=== PATIENT | male | born 1940 | race Caucasian/White ===

== ENCOUNTER → 2021-03-09 09:13 | Outpatient (BNVA) | payer MEDICARE, SELFPAY | PROVIDERS: PCP Internal Medicine; Visit Provider Nurse Practitioner Family | DX: M47.816 Spondylosis without myelopathy or radiculopathy, lumbar region (principal); M79.18 Myalgia, other site; M51.26 Other intervertebral disc displacement, lumbar region | CPT/HCPCS: 99202 ==

== ENCOUNTER 2021-06-15 13:00 | Outpatient (RCR) | payer MEDICARE, SELFPAY ==
--- NOTE | 2021-04-08 15:32 | MHC.PT.EP ---
[facility] [place] Office [place] Office [place] Office [address] Mian Ortiz [address] [phone] F: [phone] F: [phone] F: [phone] F: [phone] Physical Therapy Plan of Care Date of Evaluation: Date of Surgery: NA Diagnosis: SPONDYLOSIS WITHOUT MYELOPATHY OR RADICULOPATHY Assessment: Pt IS 81 YO M REFERRED TO PT WITH LUMBAR SPONDYLOSIS. Pt REPORTS CHRONIC BACK PAIN (WITH PT AND CHIRO IN PAST WITH RELIEF) WITH ACUTE FLARE UP WHICH STARTED OVER THE SUMMER WHILE BUILDING A RETAINING WALL. 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 PRESENTS WITH INCREASED ABDOMINAL GIRTH (REPORTS HERNIA) WITH POOR CORE STRENGTH DECREASED BODY MECH AWARENESS AND DECREASED TRUNK/LE FLEXIBILITY. SHOULD BENEFIT FROM PT TO ADDRESS THESE ISSUES Frequency and Duration: The patient will be seen 2X/WK X 6 WKS Short Term Goals: 1. INCREASED AWARENESS BACK CARE AND SIT POSTURE 2. Pt TO PERF 2-3 TASKS WITH PROPER BODY MECH (USING LEGS VS FLEXING AT WAIST) Shelter Goals: 1. DECREASED BACK PAIN AT LEAST 50% WITH ADLS 2. I HEP WITH DC EX PLAN Treatment Plan: Modalities to reduce pain, spasms and effusion. Manual therapy to restore motion and function. Therapeutic exercise to improve strength and flexibility. Neuromuscular re-education for posture and balance. Therapeutic activities to return to functional activities of daily living. Electronically signed by: RYAN KAUR PT Please sign and return to therapist. Thank you for your referral.
--- NOTE | 2021-08-17 13:21 | MHC.PT.DC ---
[facility] [place] Office [place] Office [place] Office [address] Mian Ortiz [address] [phone] F: [phone] F: [phone] F: [phone] F: [phone] Physical Therapy Discharge Report Diagnosis: SPONDYLOSIS WITHOUT MYELOPATHY OR RADICULOPATHY Date of Surgery: NA Date of Evaluation: 04/08/21 Date of Discharge: 08/17/21 Treatments to Date: 12 Cancellations to Date: No Shows to Date: Discharge Status: Improved Function Independent with HEP Patient Elected to Stop Discharge Summary: Pt LAST SEEN ON 06/15/21 BY SAL ROSEN DPT, PT. PER ASSESSMENT THAT DAY Progressing well, anticipating transition to I HEP in 1-2 visits. Addressed pt questions in regard to specific gym equipment and circuit training advised recommendation to avoid forceful trunk flexion/ext and overhead circuits. Given new HEP sheets today -reviewed HEP to date Pt introduced LBTR with physioball in hooklying today; pt expressing goal of obtaining LBTR with use of ball for home. Progress CKC, core strengthening, ?Pball if pt purchases for home use. Pt THEN CANCELLED LAST 3 SCHEDULED VISITS. Electronically signed by: RYAN KAUR PT Please sign and return to therapist. Thank you for your referral.
== END 2021-08-17 13:22 | disposition home or self-care (01) ==
LOC: HO.PTWFD 13:00
PROVIDERS: Visit Provider Nurse Practitioner Family
DX: M47.816 Spondylosis without myelopathy or radiculopathy, lumbar region (principal); M51.26 Other intervertebral disc displacement, lumbar region; M79.18 Myalgia, other site
CPT/HCPCS: 97110; 97140; 97150; 97161; 97530; 97535

== ENCOUNTER → 2021-08-10 13:03 | Outpatient (BNVA) | payer MEDICARE, SELFPAY | PROVIDERS: PCP Internal Medicine; Visit Provider Nurse Practitioner Family | DX: M51.26 Other intervertebral disc displacement, lumbar region (principal); M47.816 Spondylosis without myelopathy or radiculopathy, lumbar region; M54.89 Other dorsalgia; G89.29 Other chronic pain; M79.645 Pain in left finger(s) | CPT/HCPCS: 99212 ==

== ENCOUNTER 2021-08-17 08:06 | Outpatient (REF) | payer MEDICARE, SELFPAY ==
--- NOTE | ~2021-08-17 | MR_ITS ---
EXAMINATION: MR LUMBAR SPINE WITHOUT CONTRAST CLINICAL INFORMATION: Other intervertebral disc displacement, lumbar region. Pain. COMPARISON: None TECHNIQUE: MRI of the lumbar spine was obtained using routine sequences without contrast. FINDINGS: There is transitional lumbosacral anatomy. For the purposes of this examination the L5-S1 disc is seen on series 6 image 21/30. A formed disc is seen at the S1-S2 level which is seen on series 6 image 27/30. The lumbar vertebral bodies maintain normal heights. There is mild retrolisthesis of L5 on S1. There is an inferior endplate Schmorl's node at L3 with mild associated marrow edema. The extraspinal soft tissues appear normal. SPINAL LEVELS: L1-L2: No posterior disc abnormality. No spinal canal or neural foraminal stenosis. L2-L3: Minimal disc bulging. No spinal canal or neural foraminal stenosis. L3-L4: Disc bulging with mild facet arthropathy. Mild left more than right neural foraminal stenosis. No spinal canal stenosis. L4-L5: Disc bulging with mild facet arthropathy. Mild left more than right neural foraminal stenosis. L5-S1: Disc bulging with shallow central protrusion with annular fissuring causing abutment of the traversing left more than right S1 nerve roots in the subarticular zones. Mild to moderate right more than left neural foraminal stenosis. No significant spinal canal stenosis. S1-S2: No spinal canal or neural foraminal stenosis. MR/MR lumbar spine wo con IMPRESSION: Transitional lumbosacral anatomy with last formed disc considered S1-S2 as detailed above. No significant narrowing of the spinal canal. At L5-S1 there is shallow central protrusion causing abutment of the traversing left more than right S1 nerve roots in the subarticular zones. Mild to moderate neural foraminal stenosis is seen across this level.
== END 2021-08-17 08:07 | disposition home or self-care (01) ==
LOC: HO.MRI 08:06
PROVIDERS: Visit Provider Nurse Practitioner Family
DX: M47.816 Spondylosis without myelopathy or radiculopathy, lumbar region (principal); M51.26 Other intervertebral disc displacement, lumbar region
CPT/HCPCS: 72148

== ENCOUNTER → 2021-09-02 11:47 | Outpatient (BNVA) | payer MEDICARE, SELFPAY | PROVIDERS: PCP Internal Medicine; Visit Provider Anesthesiology | DX: M51.26 Other intervertebral disc displacement, lumbar region (principal); M47.816 Spondylosis without myelopathy or radiculopathy, lumbar region; G89.29 Other chronic pain; M54.59 Other low back pain; M79.645 Pain in left finger(s) | CPT/HCPCS: 99212 ==

== ENCOUNTER → 2021-09-09 16:16 | Outpatient (BNVA) | payer MEDICARE, SELFPAY | PROVIDERS: PCP Internal Medicine; Visit Provider Anesthesiology | DX: M51.26 Other intervertebral disc displacement, lumbar region (principal); M47.816 Spondylosis without myelopathy or radiculopathy, lumbar region; M54.59 Other low back pain; G89.29 Other chronic pain; M79.645 Pain in left finger(s) | CPT/HCPCS: 99212 ==

== ENCOUNTER 2021-09-16 08:34 | Outpatient (REF) | payer MEDICARE, SELFPAY ==
--- NOTE | ~2021-09-16 | XR_ITS ---
EXAMINATION: XR HAND, LEFT CLINICAL INFORMATION: Pain COMPARISON: None TECHNIQUE: PA, lateral, and oblique views of the left hand. FINDINGS: There is arthritis at the first PENITENTIARY joint and trapezoid trapezium scaphoid joints. 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 No fracture or dislocation is seen. Soft tissues are unremarkable. XR/XR hand LT min 3V IMPRESSION: Arthritis.
== END 2021-09-16 08:35 | disposition home or self-care (01) ==
LOC: HO.HOSX 08:34
PROVIDERS: Visit Provider Orthopaedic Surgery
DX: M18.12 Unilateral primary osteoarthritis of first carpometacarpal joint, left hand (principal)
CPT/HCPCS: 73130; 99202

== ENCOUNTER → 2022-07-19 14:53 | Outpatient (BNVA) | payer SELFPAY | PROVIDERS: PCP Internal Medicine; Visit Provider Internal Medicine | DX: Z02.79 Encounter for issue of other medical certificate (principal) ==

== ENCOUNTER 2022-10-01 10:39 | Emergency (ER) | payer MEDICARE, SELFPAY ==
[2022-10-01 10:43] VITALS: BP 144/85; PULSE 73; RESP 18; TEMP 36.8; O2SAT 98; BMI 32.6
--- NOTE | 2022-10-01 10:51 | ED_ITS ---
HPI - General Adult General Chief complaint: Ear Problems Stated complaint: FB L Ear Time Seen by Provider: 10/01/22 10:51 Source: patient Mode of arrival: ambulatory Limitations: no limitations History of Present Illness HPI narrative: Patient is an 82-year-old male presenting the emergency department with piece of hearing aid stuck in left ear canal, he was not able to remove himself. He denies any pain or other complaints. States coworkers attempted to remove the piece as well but were afraid to continue as they did not want to push it further into his ear canal. MD complaint: FB left ear Onset (ago): hour(s) Location: head Associated symptoms: denies other symptoms Treatments prior to arrival: none Related Data Home Medications Medication Instructions Recorded Confirmed apixaban 5 mg tablet (Eliquis) 5 mg PO BID 03/09/21 blood sugar diagnostic (FreeStyle #10 ea 03/09/21 Lite Strips) ciclopirox 0.77 % topical cream appl topical 03/09/21 cinnamon bark 500 mg capsule 500 mg PO DAILY 03/09/21 (Cinnamon) empagliflozin 25 mg tablet 25 mg PO DAILY 03/09/21 (Jardiance) latanoprost 0.005 % eye drops 1 drp ophthalmic (eye) BEDTIME 03/09/21 liraglutide 0.6 mg/0.1 mL (18 mg/3 mg subcut 03/09/21 mL) subcutaneous pen injector (Victoza 2-Kannan) losartan 100 mg tablet 100 mg PO DAILY 03/09/21 metformin 500 mg tablet 1,000 mg PO BID 03/09/21 mometasone 0.1 % topical cream appl topical BID 03/09/21 omega-3 fatty acids 1,000 mg 1,000 mg PO DAILY 03/09/21 capsule (Fish Oil Concentrate) simvastatin 20 mg tablet 20 mg PO BEDTIME 03/09/21 diltiazem HCl 120 mg 120 mg PO DAILY 08/10/21 capsule,extended release 24 hr lancets 28 gauge (FreeStyle #100 ea 08/10/21 Lancets) loperamide 2 mg capsule mg PO 08/10/21 Previous Rx's Medication Instructions Recorded tizanidine 2 mg tablet 2 mg PO TID PRN muscle spasticity 03/09/21 30 days #90 tabs methylprednisolone 4 mg tablets in See Rx Instructions PO PER PKG DIR 08/10/21 a dose pack (Medrol (Kannan)) pain #21 ea Allergies Allergy/AdvReac Type Severity Reaction Status Date / Time lisinopril [LISINOPRIL] Allergy Unknown HIVES Verified 09/16/21 08:44 Review of Systems Review of Systems: As per HPI. Yes all other systems are reviewed and are negative Constitutional: Constitutional: Reports as per HPI [facility] Past Medical History Medical History Angioedema of lips Basal cell carcinoma (BCC) Benign neoplasm of colon Cataract Chronic kidney disease, stage 3 Diabetes mellitus type 2 with neurological manifestations Diabetes mellitus with cataract Diverticulosis of colon GERD (gastroesophageal reflux disease) Hyperlipidemia Hypertension Microalbuminuria Morbid obesity PEG (obstructive sleep apnea) Paroxysmal atrial fibrillation Peripheral neuropathy PLMD (periodic limb movement disorder) Shortness of Breath Surgical History Hx of colonoscopy Family History Family History Mother Stroke Father Emphysema, unspecified Sister Melanoma Brother Cancer of colon Son Colon polyps Social History Social History (Updated 09/16/21 @ 08:45 by CHARLEY Lopes) Patient Tobacco Use Status: Former Tobacco user Tobacco use type: Cigarette Current occupational status: employed and retired Current occupation: business controller/rt hand Physical Exam ED Vital Signs: Vital Signs - 24 hr 10/01/22 10:43 Temperature 98.2 F Pulse Rate 73 Respiratory Rate 18 Blood Pressure 144/85 H Pulse Oximetry 98 Oxygen Delivery Method Room Air BMI result Body Mass Index 32.6 Vital signs have been reviewed and appear to be correct. Blood pressure normal. Heart rate normal. Respiratory rate normal. Temperature normal. Oxygen saturation normal. Const General: cooperative, healthy appearing and no acute distress Orientation/consciousness: oriented to person, oriented to place, oriented to time and patient oriented x3 Limitations: no limitations HENMT Head: Yes normocephalic and Yes atraumatic Ears: external ears normal and Abnormal EAC present foreign body on the left General nose exam: Normal external nose present Face and sinus: Yes face symmetric Mouth: oropharynx normal and moist mucous membranes Throat: Yes uvula midline Eyes Pupils: Equal, round and reactive pupils present Neck Neck: Yes normal visual inspection and Yes supple Resp Effort & Inspection: normal respiratory effort and able to speak in complete sentences Auscultation: clear to auscultation bilaterally Cardio Rate: regular rate Rhythm: regular rhythm Heart sounds: S1 normal heart sound present and S2 normal heart sound present GI Palpation (GI): Soft to palpation and nontender Auscultation: normoactive bowel sounds General: Yes no CVA tenderness Back/Spine/Pelvis Back: no CVA tenderness Skin General skin exam: elasticity normal and turgor normal Neuro General: oriented to person, oriented to place, oriented to time, patient oriented x3, moves all extremities, no focal motor deficits and CN's II-XI intact bilaterally Cranial nerves: Yes Equal, round and reactive pupils present Cognition (Neuro): normal cognition Extrem General: Yes full ROM, Yes no pedal edema and Yes no calf tenderness Psych Mental Status: mental status grossly normal Affect: normal affect Thought process: Normal thought process present Medical Decision Making Medical Decision Making MDM Narrative: Patient is an 82-year-old male presenting the emergency department with piece of hearing aid stuck in left ear canal, he was not able to remove himself. On exam patient is awake, A+Ox3, VS WNL, afebrile, normal neurological exam without focal deficits, foreign body visible left ear canal, no erythema or edema. Given reported symptoms and physical exam findings, initial differential includes foreign body, otitis externa, otitis media. Foreign body removed with alligator clamps in triage, ear reassessed, TM and EAC normal. Patient stable for discharge home. Instructed patient to follow-up with PCP for any new symptoms. Patient verbalized understanding of and agreement with plan. Differential Diagnosis Differential Diagnoses: The differential diagnosis associated with the presentation includes As per MDM. External Record Review External record reviewed: Inpatient record, Office record and Outpatient record Discharge Plan Discharge Clinical Impression: Acute foreign body of left ear Patient Disposition: Home, Self-Care Instructions: Ear Foreign Body (ED) Additional Instructions: You were evaluated in the emergency department today for question of foreign body to the left ear. The foreign body was removed in triage without difficulty. Your exam following removal showed no signs of infection. Please follow-up with your PCP for any new symptoms. Prescriptions: No Action Victoza 2-Kannan 0.6 mg/0.1 mL (18 mg/3 mL) pen injector subcut latanoprost 0.005 % drops 1 drp ophthalmic (eye) BEDTIME metformin 500 mg tablet 1,000 mg PO BID mometasone 0.1 % cream topical BID (DME) FreeStyle Lite Strips Strip See Rx Instructions Not Applicable TID Qty: 10 Rx Instructions: As directed Jardiance 25 mg tablet 25 mg PO DAILY Eliquis 5 mg tablet 5 mg PO BID losartan 100 mg tablet 100 mg PO DAILY simvastatin 20 mg tablet 20 mg PO BEDTIME ciclopirox 0.77 % cream topical omega-3 fatty acids [Fish Oil Concentrate] 1,000 mg capsule 1,000 mg PO DAILY cinnamon bark [Cinnamon] 500 mg capsule 500 mg PO DAILY tizanidine 2 mg tablet 2 mg PO TID PRN (Reason: muscle spasticity) 30 Days Qty: 90 1RF (DME) lancets [FreeStyle Lancets] 28 gauge misc See Rx Instructions topical .MEDSUPPLY Qty: 100 Rx Instructions: As directed loperamide 2 mg capsule PO diltiazem HCl 120 mg capsule,extended release 24hr 120 mg PO DAILY methylprednisolone [Medrol (Kannan)] 4 mg tablets,dose pack See Rx Instructions PO PER PKG DIR Qty: 21 0RF Rx Instructions: PO PER PKG DIR
== END 2022-10-01 11:02 | disposition home or self-care (01) ==
PROVIDERS: Emergency Provider Emergency Medicine Emergency Medical Services; PCP Internal Medicine
DX: T16.2XXA Foreign body in left ear, initial encounter (principal); M79.5 Residual foreign body in soft tissue; Z79.899 Other long term (current) drug therapy
CPT/HCPCS: 69200; 99282; 99284

== ENCOUNTER → 2023-07-15 10:47 | Outpatient (BNVA) | payer SELFPAY | PROVIDERS: PCP Internal Medicine; Visit Provider Physician Assistant | DX: Z02.79 Encounter for issue of other medical certificate (principal) ==